=== PATIENT | male | born 1965 | race Caucasian/White ===

== ENCOUNTER → 2024-06-25 06:45 | Outpatient (REF) | payer BC, SELFPAY | LOC: HWRAD 06:45 | PROVIDERS: ATTENDING PHYSICIAN Internal Medicine Endocrinology, Diabetes & Metabolism; FAMILY PHYSICIAN Family Medicine | DX: R94.6 Abnormal results of thyroid function studies (principal) | CPT/HCPCS: 76536 ==

== ENCOUNTER → 2024-07-21 12:50 | Outpatient (REF) | payer BC, SELFPAY ==
[2024-07-21 13:10] VITALS: BP 161/90; BP_SYST 78
[2024-07-21 14:20] VITALS: BP 161/90
== END ==
LOC: RADI 12:50
PROVIDERS: ATTENDING PHYSICIAN Internal Medicine Endocrinology, Diabetes & Metabolism; FAMILY PHYSICIAN Family Medicine
DX: E04.1 Nontoxic single thyroid nodule (principal)
CPT/HCPCS: 88173; 10005

== ENCOUNTER 2025-02-06 20:31 | Emergency (ER) | payer BC, SELFPAY ==
[2025-02-06 20:35] VITALS: BP 159/103
[2025-02-06 21:46] VITALS: BP 157/82; BMI 34.8
[2025-02-06 23:04] LABS: % Basophils 0.8 % (0-2); % Eosinophils 3.7 % (0-6); % Immature Granulocytes 0.2 % (0-0.5); % Lymphocytes 31.9 % (20.5-51.1); % Monocytes 11.8 % (1.7-9.3); % Neutrophils 51.6 % (42.2-75.2); Absolute Basophils 0.1 10^3/uL (0-0.2); Absolute Eosinophils 0.5 10^3/uL (0-0.7); Absolute Monocytes 1.5 10^3/uL (0.1-0.6); Absolute Neutrophils 6.5 10^3/uL (1.4-6.5); Hemoglobin 11.8 g/dL (13.0-18.0); Mean Corp Hgb Conc. 31.9 g/dL (33.0-37.0); Mean Corpuscular Hgb 27.6 pg (27.0-31.0); Mean Corpuscular Volume 86.7 fL (80.0-94.0); Mean Platelet Volume 10.2 fL (7.4-10.4); Nucleated Red Blood Cells % 0 % (-); Platelet Count 471 10^3/uL (130-400); Red Blood Cell Count 4.27 10^6/uL (4.70-6.10); Red Cell Dist. Width 17.2 % (11.5-14.5); White Blood Cell Count 12.5 10^3/uL (4.8-10.8)
[2025-02-06 23:17] LABS: Lactic Acid 1.7 mmol/L (0.7-2.0)
[2025-02-06 23:25] LABS: ALT (SGPT) 33 U/L (0-50); AST (SGOT) 39 U/L (17-59); Albumin 4.2 g/dl (3.5-5.0); Alkaline Phosphatase 100 U/L (38-126); Blood Urea Nitrogen 16 mg/dl (9-20); Calcium 9.2 mg/dl (8.4-10.2); Carbon Dioxide 28 mmol/L (22-30); Chloride 108 mmol/L (98-107); Estimated Creatinine Clearance > 125 ml/min; Glucose 122 mg/dl (70-99); Sodium 141 mmol/L (135-145); Total Bilirubin 0.7 mg/dl (0.2-1.3); Total Protein 7.1 g/dl (6.3-8.2); eGFR > 60.00
[2025-02-06] MEDS: ANCEF 1000 MG IM (23:46)
--- NOTE | 2025-02-06 23:46 | ED.GENMED ---
History of Present Illness
General
Chief Complaint: DVT/Possible Blood Clot
Source: patient
Exam Limitations: none
Time Seen by Provider: 02/06/25 20:55
Nursing documentation reviewed up to this point in time: agreed with
History of Present Illness
History of Present Illness:
Patient to ED wtih complaint of redness and swelling to left lower leg. Symptoms started approx 2-3 days ago e denies fever/chills. No history of trauma. Brought self to ED for eval
Past History
Past History
ED Past Medical History: Cancer (pancreatic, liver), GERD, HTN, IDDM and Other (Diabetes, intermittent explosive disorder)
Social History
Tobacco: Non-smoker
Alcohol: None
Drug: None
Personal:
Living: with family
Employment: Employed
Family History
Family History: Other (Father with kidney cancer, coronary disease and diabetes. Brother with diabetes)
Review of Systems
Review of Systems
Allergies reviewed?: Yes
All Other Systems: ROS reviewed and negative except as documented in HPI and ROS
Constitutional: Reports no symptoms
EENT: Reports no symptoms
Respiratory: Reports no symptoms
Cardiac: Reports no symptoms
ABD/GI: Reports no symptoms
Musculoskeletal: Reports no symptoms
Skin: Reports other (erythema and swelling to LLE)
Neurological: Reports no symptoms
Psychiatric: Reports no symptoms
Phy Exam
General Physical Exam
General Presentation: well appearing and no apparent distress
General age: appears stated age
General Skin: warm and dry
General Habitus: normal
General Mental: alert
Musculoskeletal Exam
Musculoskeletal Exam: full ROM and neuro vasc intact
Skin Exam
Skin Exam: warm/dry and other (Erythema and swelling to left mid vila to left ankle. NO open wounds, no drainage. )
Psychiatric Exam
Psychiatric Exam: normal mood/affect
Course
Orders/Labs/Results
Orders:
Orders
02/06/25 20:39
Venous Doppler Lwr Ext Left [US Periph Venous LOWER Ext LT] Urgent
Comment:
Reason For Exam: red/warm/swelling
02/06/25 22:58
Complete Blood Count/With Diff Urgent
Comprehensive Metabolic Panel Urgent
Lactic Acid Urgent
02/06/25 23:37
CeFAZolin SODIUM [Ancef] 1,000 mg IM NOW STA
Abnormal Lab Results
02/06/25
22:58
WBC 12.5 H 10^3/uL
(4.8-10.8)
RBC 4.27 L 10^6/uL
(4.70-6.10)
Hgb 11.8 L g/dL
(13.0-18.0)
Hct 37.0 L %
(39.0-52.0)
MCHC 31.9 L g/dL
(33.0-37.0)
RDW 17.2 H %
(11.5-14.5)
Plt Count 471 H 10^3/uL
(130-400)
Absolute Lymphs (auto) 4.0 H 10^3/uL
(1.2-3.4)
Absolute Monos (auto) 1.5 H 10^3/uL
(0.1-0.6)
Monocytes % 11.8 H %
(1.7-9.3)
Chloride 108 H mmol/L
(98-107)
Glucose 122 H mg/dl
(70-99)
02/06/25 22:58
02/06/25 22:58
Vital Signs
Initial and Last Documented VS:
Initial Vital Signs
Temp Pulse Resp BP Pulse Ox
97.8 F 93 18 159/103 100
02/06/25 20:35 02/06/25 20:35 02/06/25 20:35 02/06/25 20:35 02/06/25 20:35
Last Documented Vital Signs
Temp Pulse Resp BP Pulse Ox
97.8 F 87 16 157/82 99
02/06/25 20:35 02/06/25 21:46 02/06/25 21:46 02/06/25 21:46 02/06/25 21:46
*Radiology
Radiology exam reviewed: other (Verbal from [facility], neg for DVT)
*Critical Care Note
Total Time (30-74mins, 75-104mins- exclusive of procedures): Not Applicable
Update Note
Update Note:
Patient to ED for eval of LLE erythema and swelling. NO history of trauma. NO wounds, no drainage. He is currently being treated for recurrence of pancreatic CA. He remains afebrile. NOntoxic appearing. WBC 12 noted. Lactic normal. He would like
to be discharged home, treat with oral antibiotics. He was given a dose of ancef in ED and will continue Keflex 500mg qid x 10 days. He was given instructions on s/s to return to ED and he is agreeable to plan.
ED Attending Note
-
Portions of this chart may have been created with voice recognition software.� Occasional wrong word or��sound alike� substitutions may have occurred due to the inherent limitations of voice recognition software.
Discharge Plan
Departure
Patient Disposition: Home (Routine Discharge)
Date of Disposition: 02/06/25
Time of Disposition: 23:46
Patient with high blood pressure during this ER visit?: No
Condition: Good
Covid-19: Not Applicable
Discharge Problem:
Cellulitis of left leg
Instructions: Cellulitis (Skin Infection), Adult (DC)
Prescriptions:
New
cephalexin 500 mg capsule
500 mg PO Q6H 10 Days Qty: 40 0RF
No Action
gabapentin 300 mg Capsule
300 mg PO HS
duloxetine [Cymbalta] 60 mg Capsule,Delayed Release(Dr/Ec)
60 mg PO HS
acetaminophen 325 mg Tablet
650 mg PO Q4HPRN PRN (Reason: mild pain /fever >100.4) Qty: 0 0RF
Humulin R U-500 (Conc) Insulin 500 unit/mL Solution
70 unit SC TID
omeprazole 10 mg Capsule,Delayed Release(Dr/Ec)
10 mg PO DAILY
lisinopril 40 mg Tablet
40 mg PO DAILY
Referrals:
Tenthjt,Lilia Xavier MD [Family Provider] - Follow up in 2-3 days
Activity Restrictions/Additional Instructions:
Return to the emergency department immediately for fever/chills, increasing pain, redness, swelling to your leg, or for any further concerns.
Interventions
Interventions:
*Risk Screen - Suicide Last Done: 02/06/25 20:35
*General Assessment Last Done: 02/06/25 20:35
*Neglect/Abuse Screening Last Done: 02/06/25 20:35
*ED COVID-19 Vaccine History Last Done: 02/06/25 20:35
ED- Cardiac Assessment Last Done: 02/06/25 21:46
ED- Pulmonary Assessment Last Done: 02/06/25 21:46
ED-Peripheral Vascular Assessment Last Done: 02/06/25 21:46
ED-Skin Assessment Last Done: 02/06/25 21:46
Discharge Date and Time
Print Language: [place]
== END 2025-02-07 | disposition home or self-care (01) ==
LOC: EMR 20:31
PROVIDERS: Nurse Practitioner; EMERGENCY PHYSICIAN Emergency Medicine; FAMILY PHYSICIAN Family Medicine
DX: L03.116 Cellulitis of left lower limb (principal); K21.9 Gastro-esophageal reflux disease without esophagitis; I10 Essential (primary) hypertension; E11.9 Type 2 diabetes mellitus without complications; F63.81 Intermittent explosive disorder; Z82.49 Family history of ischemic heart disease and other diseases of the circulatory system; Z83.3 Family history of diabetes mellitus
CPT/HCPCS: 99284; 96372; 80053; 83605; 85025; 93971